=== PATIENT | male | born 1990 | race Caucasian/White ===

== ENCOUNTER 2017-09-06 14:20 | Emergency (ER) | payer OTHER ==
[~2017-09-06] VITALS: Ht 172.7 cm; Wt 81.2 kg
[2017-09-06 14:27] VITALS: BP 122/84
[2017-09-06 14:52] VITALS: BP 122/84
== END 2017-09-06 14:52 | disposition home or self-care (01) ==
LOC: MED 14:20
DX: Z02.5 Encounter for examination for participation in sport (principal)
CPT/HCPCS: 99283